=== PATIENT | female | born 1985 | race African-American/Black ===

== ENCOUNTER 2016-07-04 12:12 | Emergency (ER) | payer MEDICAID ==
[2016-01-20 00:51] VITALS: BMI 33.0
[~2016-07-04 12:12] MED LIST: GLUCOPHAGE500 MG PO; GLUCOPHAGE850 MG PO; HYDROCODONE-APA1 TAB PO; IBUPROFEN600 MG PO; MOTRIN600 MG PEG; PERCOCET 5-3251 TAB PO; PRENATAL COMPLE1 TAB PO; PROCARDIA XL PO
== END 2016-07-04 14:09 | disposition home or self-care (01) ==
LOC: D.ER 12:12
DX: J20.9 Acute bronchitis, unspecified (principal); J01.90 Acute sinusitis, unspecified

== ENCOUNTER 2018-10-25 10:18 | Emergency (ER) | payer MEDICAID ==
[~2018-10-25] VITALS: Ht 167.6 cm; Wt 76.4 kg
[2018-10-25 10:26] VITALS: Ht 167.6 cm; Wt 76.4 kg
[2018-10-25 10:51] LABS: BASOPHILS 0.3 % (0-2); EOSINOPHILS 0.7 % (0-7); HEMATOCRIT 35.3 % (36.0-48.0); HEMOGLOBIN 10.5 g/dL (12-16); IMMATURE GRANULOCYTES 0.2 % (0-5); LYMPHOCYTES 27.4 % (15-50); MCH 22.2 pg (26.0-34.0); MCHC 29.7 g/dL (31.0-37.0); MCV 74.5 fL (80.0-100.0); MEAN PLATELET VOLUME 8.8 fL (7.4-10.4); MONOCYTES 5.1 % (2-11); NEUTROPHILS 66.3 % (40-80); RBC 4.74 10x6/uL (4.00-5.40); RDW 19.2 % (11.5-14.5); WBC 10.4 10x3/uL (4.8-10.8)
[2018-10-25 10:57] LABS: PLATELET COUNT 473 10x3/uL (130-400)
[2018-10-25 11:05] LABS: APPEARANCE CLEAR (CLEAR); BILIRUBIN NEGATIVE (NEGATIVE); COLOR STRAW (YELLOW); GLUCOSE NEGATIVE (NEGATIVE); KETONE NEGATIVE (NEGATIVE); NITRITE NEGATIVE (NEGATIVE); PROTEIN NEGATIVE (NEGATIVE); SPECIFIC GRAVITY 1.005 (1.005-1.020); UROBILINOGEN NORMAL (NORMAL)
[2018-10-25 11:06] LABS: BACTERIA MODERATE /hpf (NONE SEEN); EPITHELIAL CELLS 0-5 /hpf (0-5); WHITE CELLS - URINE 0-5 /hpf (0-5)
[2018-10-25 11:07] LABS: ALBUMIN 4.1 g/dL (3.4-5.0); ALKALINE PHOSPHATASE 87 U/L (46-116); ALT (SGPT) 15 U/L (10-68); AMYLASE - SERUM 42 U/L (25-115); BILIRUBIN - TOTAL 0.11 mg/dL (0.2-1.3); CALC OSMOLALITY 282 mosm/kg (275-300); CALCIUM 8.9 mg/dL (8.5-10.1); CARBON DIOXIDE 23.3 mmol/L (21.0-32.0); CHLORIDE - SERUM 106 mmol/L (98-107); CREATININE - SERUM 0.9 mg/dL (0.6-1.3); LIPASE 123 U/L (73-393); POTASSIUM - SERUM 3.4 mmol/L (3.5-5.1); PROTEIN - SERUM 8.3 g/dL (6.4-8.2); SODIUM 142 mmol/L (136-145); UREA NITROGEN 6 mg/dL (7-18); eGFR NON AFRICAN AMERICAN 76 mL/min (90-120)
[2018-10-25 11:09] LABS: GLUCOSE 127 mg/dL (74-106)
[2018-10-25] MEDS ORDERED: HYDROCODON-ACE1 EAC7 PO (17:02)
[2018-10-25 17:20] VITALS: BP 115/62
== END 2018-10-25 17:21 | disposition home or self-care (01) ==
LOC: D.ER 10:18
PROVIDERS: Family Medicine
DX: K80.20 Calculus of gallbladder without cholecystitis without obstruction (principal)

== ENCOUNTER 2018-11-04 05:55 | Day surgery (SDC) | payer MEDICAID ==
[2018-11-03 10:05] LABS: HEMATOCRIT 35.3 % (36.0-48.0); HEMOGLOBIN 10.5 g/dL (12-16); MCH 22.2 pg (26.0-34.0); MCHC 29.7 g/dL (31.0-37.0); MCV 74.5 fL (80.0-100.0); MEAN PLATELET VOLUME 8.9 fL (7.4-10.4); RBC 4.74 10x6/uL (4.00-5.40)
[~2018-11-04] VITALS: Ht 167.6 cm; Wt 73.9 kg
[~2018-11-04 05:55] MED LIST changes: +DULCOLAX10 MG/SUPP; +HYDROCODON-ACE1 EAC7 PO; +MIRALAX17 GM PO; +ULTRAM50 MG PO
[2018-11-04 07:30] VITALS: BP 107/56; Ht 167.6 cm; Wt 73.9 kg
[2018-11-04] MEDS ORDERED: HYDROCODON-ACE1 EAC7 PO (09:17)
--- NOTE | 2018-11-04 13:07 | NUR ---
PT ASSISTED TO BATHROOM. SLOW AND WITH PAIN TO UPPER GASTRIC AREA. STARTED PERIOD. UNABLE TO URINATE
--- NOTE | 2018-11-04 13:37 | NUR ---
1230 DR SANTACRUZ AT BEDSIDE TO SEE PT. AWARE OF PAIN IN UPPER DIAPHRAM. ENCOURAGED PT TO GET UP AND WALK. PT FALLS BACK TO SLEEP EASILY. NO PAIN WHEN IN BED SLEEPING
== END 2018-11-04 15:06 | disposition home or self-care (01) ==
LOC: D.OPS 05:55 → D.PAN 08:00 → D.OPS 15:06
PROVIDERS: Anesthesiology; ATTEND Surgery
DX: K80.10 Calculus of gallbladder with chronic cholecystitis without obstruction (principal); Z01.812 Encounter for preprocedural laboratory examination